=== PATIENT | female | born 1970 | race Caucasian/White ===

== ENCOUNTER 2018-01-09 12:01 | Day surgery (SDC) | payer OTHER ==
[2018-01-09 13:03] LABS: ADD MAN DIFF? NO
[2018-01-09 13:07] LABS: BASOPHILS % 0.3 % (0.0-2.0); EOSINOPHILS % 0.6 % (0.0-7.0); HEMATOCRIT 35.8 % (37.0-47.0); HEMOGLOBIN 11.8 g/dl (12.0-16.0); LYMPHOCYTES # 2.3 10^3/ul (0.8-2.9); LYMPHOCYTES % 37.5 % (15.0-51.0); MEAN CORPUSCULAR HEMOGLOBIN 28.7 pg (29.0-33.0); MEAN CORPUSCULAR VOLUME 87.1 fl (82.0-101.0); MEAN PLATELET VOLUME 10.4 fl (7.4-10.4); MONOCYTE # 0.5 10^3/ul (0.3-0.9); MONOCYTES % 8.2 % (0.0-11.0); NEUTROPHIL # 3.3 10^3/ul (1.6-7.5); NEUTROPHILS % 53.1 % (39.0-77.0); PLATELET COUNT 237 10^3/UL (140-415); RED BLOOD COUNT 4.11 10^6/ul (4.20-5.40); RED CELL DISTRIBUTION WIDTH 14.2 % (11.5-14.5)
[2018-01-09 13:07] LABS: WHITE BLOOD COUNT 6.2 10^3/ul (4.8-10.8)
[2018-01-09 13:28] LABS: ALANINE AMINOTRANSFERASE 17 IU/L (13-69); ALBUMIN 4.2 g/dl (3.3-4.9); ALBUMIN/GLOBULIN RATIO 1.35; ALKALINE PHOSPHATASE 34 IU/L (42-121); ANION GAP 10 (5-13); ASPARTATE AMINO TRANSFERASE 23 IU/L (15-46); BILIRUBIN,INDIRECT 0.3 mg/dl (0-1.1); BILIRUBIN,TOTAL 0.3 mg/dl (0.2-1.3); BLOOD UREA NITROGEN 14 mg/dl (7-20); CALCIUM 8.7 mg/dl (8.4-10.2); CARBON DIOXIDE 22 mmol/L (21-31); CHLORIDE 110 mmol/L (97-110); CREATININE 0.61 mg/dl (0.44-1.00); GLUCOSE 84 mg/dl (70-220); INR 0.92; POTASSIUM 3.9 mmol/L (3.5-5.1); PROTIME 12.4 Sec (11.9-14.9); SODIUM 142 mmol/L (135-144); TOTAL PROTEIN 7.3 g/dl (6.1-8.1)
[2018-01-09 13:29] LABS: PARTIAL THROMBOPLASTIN TIME 27.4 Sec (23.0-35.0)
[2018-01-09] MEDS ORDERED: CEFAZOLIN 2 GM/50 ML (PMX) 50 ML IVPB (13:30)
[2018-01-09] MEDS ORDERED: LACTATED RINGER'S 1,000 ML IV (13:30)
[2018-01-09] MEDS ORDERED: FENTAnyl 50 MCG/ML VIAL ×2 (14:17→17:11)
[2018-01-09] MEDS ORDERED: MIDAZOLAM 1 MG/ML 2 ML INJ (14:18)
[2018-01-09] MEDS ORDERED: PROPOFOL 20 ML (14:18)
[2018-01-09] MEDS ORDERED: ONDANSETRON 4 MG INJ (14:20)
[2018-01-09] MEDS ORDERED: LIDOCAINE 2% (SDV) 5 ML INJ (14:20)
[2018-01-09] MEDS ORDERED: MEPERIDINE 25 MG INJ IV (16:00)
[2018-01-09] MEDS ORDERED: KETOROLAC 30 MG INJ IV (16:00)
[2018-01-09] MEDS ORDERED: HYDROmorphONE 1 MG/5 ML IV SYRINGE IV ×3 (16:00)
[2018-01-09] MEDS ORDERED: ONDANSETRON 4 MG INJ IV (16:00)
[2018-01-09] MEDS ORDERED: DIPHENHYDRAMINE 50 MG INJ IV (16:00)
[2018-01-09] MEDS ORDERED: FENTAnyl 50 MCG/ML VIAL IV ×2 (16:00)
[2018-01-09] MEDS ORDERED: LEVALBUTEROL (NEB) 1.25 MG/0.5 ML AMP (17:21)
[2018-01-09] MEDS: IPRATROPIUM (NEB) 0.5 MG/2.5 ML AMP HHN (17:34)
[2018-01-09] MEDS: LEVALBUTEROL (NEB) 1.25 MG/0.5 ML AMP HHN (17:35)
== END 2018-01-09 18:38 | disposition home or self-care (01) ==
LOC: SDS 12:01
DX: D25.9 Leiomyoma of uterus, unspecified (principal)
CPT/HCPCS: 58558; 80053; 84703; 85025; 85610; 85730; 88305